=== PATIENT | female | born 1955 | race Caucasian/White ===

== ENCOUNTER → 2017-07-27 | Outpatient (CLI) | payer MEDICAID | LOC: FIMAGING 09:24 | PROVIDERS: ATTEND Registered Nurse | DX: Z12.31 Encounter for screening mammogram for malignant neoplasm of breast (principal) ==

== ENCOUNTER → 2017-08-10 | Outpatient (CLI) | payer MEDICAID | LOC: FIMAGING 11:03 | PROVIDERS: ATTEND Registered Nurse | DX: R92.8 Other abnormal and inconclusive findings on diagnostic imaging of breast (principal) ==